=== PATIENT | male | born 1955 | race Two or more races ===

== ENCOUNTER 2018-04-28 20:05 | Emergency (ER) | payer OTHER ==
[2015-01-26 11:50] VITALS: BP 124/93
[2018-04-28] MEDS ORDERED: KETOROLAC TROMETHAMINE 60 MG/2 ML VIAL IM ONE (22:24)
--- NOTE | 2018-04-28 23:08 | Diagnostic Imaging Report ---
ZAHIDA YUAN [facility] [address] [facility] [address] [address] Report Submission Date: Apr 28, 2018 10:03:22 PM DIVERSIFIED CROPS FARMER Patient Study Name: JOSE VASQUEZ Date: Apr 28, 2018 9:01:08 PM DIVERSIFIED CROPS FARMER Modality Type: DX Gender: M Description: LOWER EXTREMITY : 59 Institution: [facility] Physician: ZAHIDA YUAN Right foot History: Status post fall Three views of the right foot were obtained which demonstrate the presence of a subtle, chronic fracture deformity involving the 3rd proximal phalanx. No acute osseous abnormalities are noted. Large dorsal and plantar calcaneal spurs are present. There is a chronic 8 mm calcification associated with the posterior plantar fascia. Impression: No evidence for acute fracture or dislocation. Chronic findings as described. Electronically signed on Apr 28, 2018 10:03:22 PM DIVERSIFIED CROPS FARMER by: Ruthy BONILLA
--- NOTE | 2018-04-28 23:08 | Diagnostic Imaging Report ---
ZAHIDA YUAN [facility] [address] [facility] [address] [address] Report Submission Date: Apr 28, 2018 9:58:28 PM CONTENT DIRECTOR Patient Study Name: JOSE VASQUEZ Date: Apr 28, 2018 8:55:34 PM CONTENT DIRECTOR Modality Type: DX Gender: M Description: SHOULDER : 59 Institution: [facility] Physician: ZAHIDA YUAN Left clavicle History: Status post fall Two views of the left clavicle demonstrate no evidence for acute fracture. Mild hypertrophic findings of the AC joint are present. Impression: No evidence for acute clavicular fracture. Electronically signed on Apr 28, 2018 9:58:28 PM CONTENT DIRECTOR by: Ruthy BONILLA
--- NOTE | 2018-04-28 23:09 | Diagnostic Imaging Report ---
ZAHIDA YUAN [facility] [place] [facility] [address] [facility] [address] [place], [place]. [address] Report Submission Date: Apr 28, 2018 9:57:57 PM BOILER ERECTOR Patient Study Name: JOSE VASQUEZ Date: Apr 28, 2018 8:47:54 PM BOILER ERECTOR Modality Type: DX Gender: M Description: SHOULDER : 59 Institution: [facility] [place] [facility] Physician: ZAHIDA YUAN Left shoulder History: Status post fall Three views of the left shoulder demonstrate movement of the humeral head into internal and external rotation without evidence for acute fracture or dislocation. Mild hypertrophic findings of AC joint are present. Impression: No evidence for acute fracture or dislocation. Electronically signed on Apr 28, 2018 9:57:57 PM BOILER ERECTOR by: Ruthy BONILLA
--- NOTE | 2018-04-28 23:10 | Diagnostic Imaging Report ---
ZAHIDA YUAN [facility] [address] [facility] [address] [address] Report Submission Date: Apr 28, 2018 9:59:47 PM WINDOW CLERK Patient Study Name: JOSE VASQUEZ Date: Apr 28, 2018 9:03:40 PM WINDOW CLERK Modality Type: DX Gender: M Description: LOWER EXTREMITY : 59 Institution: [facility] Physician: ZAHIDA YUAN Right ankle History: Status post fall Three views of the right ankle demonstrate large dorsal and plantar calcaneal spurs. There is additionally a chronic 8 mm calcification along the posterior plantar fascia. There is no evidence for acute fracture or dislocation. The talar dome and ankle mortise are intact. Impression: No evidence for acute fracture or dislocation. Large dorsal and plantar calcaneal spurs as well as a chronic coarse 8 mm calcification along the posterior aspect of the plantar fascia. Electronically signed on Apr 28, 2018 9:59:47 PM WINDOW CLERK by: Ruthy BONILLA
== END 2018-04-28 22:30 | disposition home or self-care (01) ==
LOC: ED 20:05
DX: M25.512 Pain in left shoulder (principal); M25.571 Pain in right ankle and joints of right foot; W13.2XXA Fall from, out of or through roof, initial encounter; Y93.9 Activity, unspecified; Y92.9 Unspecified place or not applicable
CPT/HCPCS: 29105; 73000; 73030; 73610; 73630; 96372; 99283; 99285; J1885; 96375